=== PATIENT | male | born 1950 | race Caucasian/White ===

== ENCOUNTER 2017-08-02 10:54 | Day surgery (SDC) | payer MEDICARE ==
[2017-08-02] MEDS ORDERED: LACTATED RINGERS 1,000 ML IV ONE ×2 (11:16→11:21)
[2017-08-02] MEDS ORDERED: fentaNYL 100 MCG/2 ML VIAL IVP ONE (11:18)
[2017-08-02] MEDS ORDERED: MIDAZOLAM 2 MG/2 ML VIAL IVP ONE (11:18)
[2017-08-02 12:52] VITALS: BP 135/86
== END 2017-08-02 10:55 | disposition home or self-care (01) ==
LOC: SDS 10:54
PROVIDERS: ATTEND Surgery
PROC: 0DJD8ZZ Inspection of Lower Intestinal Tract, Via Natural or Artificial Opening Endoscopic (ICD-10-PCS; principal; 2017-08-02 12:00)
DX: Z12.11 Encounter for screening for malignant neoplasm of colon (principal); K64.8 Other hemorrhoids; Z80.0 Family history of malignant neoplasm of digestive organs; Z85.46 Personal history of malignant neoplasm of prostate
CPT/HCPCS: G0105; J7120

== ENCOUNTER 2018-07-21 09:19 | Outpatient (CLI) | payer MEDICARE ==
--- NOTE | 2018-07-22 09:21 | DEXA Report ---
Reason: OSTEOPOROSIS Procedure Date: 07/21/2018 Accession Number: [id number] / [id number] Procedure: DEX - Dexa Spine and/or Hip CPT Code: FULL RESULT: EXAM: Dexa Spine and/or Hip, Dexa Forearm DATE: 07/21/2018 10:07 AM CLINICAL HISTORY: OSTEOPOROSIS TECHNIQUE: Dual energy x-ray absorptiometry (DXA) was performed on a [employer] System. Regions measured are the AP Spine, femoral neck, and if needed forearm. COMPARISON: None. In accordance with the International Society for Clinical Densitometry (ISCD) guidelines, data from previous exams may be reanalyzed using current recommendations and techniques. This is done to allow a more accurate basis for comparison with the current study. FINDINGS: The data for the lumbar spine is as follows: BMD (g/cm/cm) T-SCORE Z-SCORE REGION L1 0.741 -3.5 -2.7 L2 1.034 -1.7 -0.9 L3 1.133 -0.9 -0.1 L4 1.051 -1.6 -0.8 TOTAL 0.992 -1.9 -1.1 NOTE: All evaluable vertebrae are used for classification The data for the hip is as follows: BMD (g/cm/cm) T-SCORE Z-SCORE REGION Neck 0.706 -2.8 -1.4 TOTAL 0.785 -2.2 -1.4 NOTE: The femoral neck or total proximal femur, whichever is lowest, is used for classification. The data for the right forearm is as follows: BMD (g/cm/cm) T-SCORE Z-SCORE REGION 1/3 0.701 -2.9 -2.2 NOTE: The 33% radius of the nondominant forearm is used for classification. IMPRESSION: THE WHO CLASSIFICATION BASED ON THE INTERNATIONAL REFERENCE STANDARD IS OSTEOPOROSIS. THE FRACTURE RISK IS HIGH. RECOMMENDATION: Patients with diagnosis of osteoporosis or osteopenia should have regular bone mineral density assessment. For those eligible for Medicare, routine testing is allowed once every 2 years. Testing frequency can be increased for patients who have rapidly progressing disease or for those who are receiving medical therapy to restore bone mass. COMMENT: World Health Organization (WHO) definitions for osteoporosis and osteopenia: NORMAL BMD: T-score at -1.0 or higher, fracture risk is low OSTEOPENIA BMD: T-score between -1.0 and -2.5, fracture risk is increased. OSTEOPOROSIS BMD: T-score at -2.5 or lower, fracture risk is high. National Osteoporosis Foundation recommends: 1. Obtain adequate dietary calcium (at least 1200 mg per day) and vitamin D (400-800 international units per day). 2. Participate, as appropriate, in regular weightbearing and muscle-strengthening exercise. 3. Avoid tobacco use and reduce alcohol and caffeine intake. 4. For more detailed information see the website at www.NOF.org.
--- NOTE | 2018-07-22 09:21 | DEXA Report ---
Reason: OSTEOPOROSIS Procedure Date: 07/21/2018 Accession Number: [id number] / [id number] Procedure: DEX - Dexa Forearm CPT Code: FULL RESULT: EXAM: Dexa Spine and/or Hip, Dexa Forearm DATE: 07/21/2018 10:07 AM CLINICAL HISTORY: OSTEOPOROSIS TECHNIQUE: Dual energy x-ray absorptiometry (DXA) was performed on a [employer] System. Regions measured are the AP Spine, femoral neck, and if needed forearm. COMPARISON: None. In accordance with the International Society for Clinical Densitometry (ISCD) guidelines, data from previous exams may be reanalyzed using current recommendations and techniques. This is done to allow a more accurate basis for comparison with the current study. FINDINGS: The data for the lumbar spine is as follows: BMD (g/cm/cm) T-SCORE Z-SCORE REGION L1 0.741 -3.5 -2.7 L2 1.034 -1.7 -0.9 L3 1.133 -0.9 -0.1 L4 1.051 -1.6 -0.8 TOTAL 0.992 -1.9 -1.1 NOTE: All evaluable vertebrae are used for classification The data for the hip is as follows: BMD (g/cm/cm) T-SCORE Z-SCORE REGION Neck 0.706 -2.8 -1.4 TOTAL 0.785 -2.2 -1.4 NOTE: The femoral neck or total proximal femur, whichever is lowest, is used for classification. The data for the right forearm is as follows: BMD (g/cm/cm) T-SCORE Z-SCORE REGION 1/3 0.701 -2.9 -2.2 NOTE: The 33% radius of the nondominant forearm is used for classification. IMPRESSION: THE WHO CLASSIFICATION BASED ON THE INTERNATIONAL REFERENCE STANDARD IS OSTEOPOROSIS. THE FRACTURE RISK IS HIGH. RECOMMENDATION: Patients with diagnosis of osteoporosis or osteopenia should have regular bone mineral density assessment. For those eligible for Medicare, routine testing is allowed once every 2 years. Testing frequency can be increased for patients who have rapidly progressing disease or for those who are receiving medical therapy to restore bone mass. COMMENT: World Health Organization (WHO) definitions for osteoporosis and osteopenia: NORMAL BMD: T-score at -1.0 or higher, fracture risk is low OSTEOPENIA BMD: T-score between -1.0 and -2.5, fracture risk is increased. OSTEOPOROSIS BMD: T-score at -2.5 or lower, fracture risk is high. National Osteoporosis Foundation recommends: 1. Obtain adequate dietary calcium (at least 1200 mg per day) and vitamin D (400-800 international units per day). 2. Participate, as appropriate, in regular weightbearing and muscle-strengthening exercise. 3. Avoid tobacco use and reduce alcohol and caffeine intake. 4. For more detailed information see the website at www.NOF.org.
== END 2018-07-21 09:20 | disposition home or self-care (01) ==
LOC: DI 09:19
PROVIDERS: ATTEND Internal Medicine
DX: M81.0 Age-related osteoporosis without current pathological fracture (principal)
CPT/HCPCS: 77080; 77081

== ENCOUNTER 2018-08-08 09:59 | Outpatient (CLI) | payer MEDICARE | END 2018-08-08 23:59 | disposition home or self-care (01) | LOC: LAB.R 09:59 | PROVIDERS: ATTEND Internal Medicine | DX: M81.0 Age-related osteoporosis without current pathological fracture (principal) | CPT/HCPCS: 82306 ==

== ENCOUNTER 2019-09-07 08:12 | Outpatient (CLI) | payer MEDICARE ==
--- NOTE | 2019-09-12 10:18 | DEXA Report ---
Reason: OSTEOPOROSIS Procedure Date: 09/07/2019 Accession Number: [id number] / [id number] Procedure: DEX - Dexa Spine and/or Hip CPT Code: Final Report FULL RESULT: EXAM: Dexa Spine and/or Hip DATE: 09/07/2019 8:45 AM CLINICAL HISTORY: OSTEOPOROSIS follow-up TECHNIQUE: 07/21/2018 COMPARISON: None. In accordance with the International Society for Clinical Densitometry (ISCD) guidelines, data from previous exams may be reanalyzed using current recommendations and techniques. This is done to allow a more accurate basis for comparison with the current study. FINDINGS: The data for the lumbar spine is as follows: BMD (g/cm/cm) T-SCORE Z-SCORE REGION L1 0.774 -3.2 -2.5 L2 1.149 -0.8 0.0 L3 1.112 -1.1 -0.3 L4 1.127 -0.9 -0.2 TOTAL 1.046 -1.4 -0.7 NOTE: All evaluable vertebrae are used for classification The data for the hip is as follows: BMD (g/cm/cm) T-SCORE Z-SCORE REGION Neck 0.672 -3.1 -1.7 TOTAL 0.772 -2.3 -1.5 NOTE: The femoral neck or total proximal femur, whichever is lowest, is used for classification. DXA RESULTS SUMMARY: Spine SCAN DATE AGE BMD CHANGE VS CHANGE VS PREVIOUS PREVIOUS % 09[birth year]07/2019 69.5 1.47 0.054* 5.4* 07/21/2018 68.4 0[age]992 * Denotes significant change at the 95% confidence level. Denotes dissimilar scan types or analysis methods. DXA RESULTS SUMMARY: Hip SCAN DATE AGE BMD CHANGE VS CHANGE VS PREVIOUS PREVIOUS % [birth year]/2019 68.5 0.772 -0.013 -1.7 07[birth year]21/2018 68.4 0.785 * Denotes significant change at the 95% confidence level. Denotes dissimilar scan types or analysis methods. IMPRESSION: THE WHO CLASSIFICATION BASED ON THE INTERNATIONAL REFERENCE STANDARD IS OSTEOPOROSIS, REFERENCE LEFT FEMORAL NECK. THE FRACTURE RISK IS HIGH. RECOMMENDATION: Patients with diagnosis of osteoporosis or osteopenia should have regular bone mineral density assessment. For those eligible for Medicare, routine testing is allowed once every 2 years. Testing frequency can be increased for patients who have rapidly progressing disease or for those who are receiving medical therapy to restore bone mass. COMMENT: World Health Organization (WHO) definitions for osteoporosis and osteopenia: NORMAL BMD: T-score at -1.0 or higher, fracture risk is low OSTEOPENIA BMD: T-score between -1.0 and -2.5, fracture risk is increased. OSTEOPOROSIS BMD: T-score at -2.5 or lower, fracture risk is high. National Osteoporosis Foundation recommends: 1. Obtain adequate dietary calcium (at least 1200 mg per day) and vitamin D (400-800 international units per day). 2. Participate, as appropriate, in regular weightbearing and muscle-strengthening exercise. 3. Avoid tobacco use and reduce alcohol and caffeine intake. 4. For more detailed information see the website at www.NOF.org.
== END 2019-09-07 08:13 | disposition home or self-care (01) ==
LOC: DI 08:12
PROVIDERS: ATTEND Family Medicine
DX: M81.0 Age-related osteoporosis without current pathological fracture (principal)
CPT/HCPCS: 77080

== ENCOUNTER 2020-02-17 10:21 | Outpatient (CLI) | payer MEDICARE ==
[2020-02-17] MEDS ORDERED: GADOBUTROL 7.5 MMOL/7.5 ML VIAL ONE (10:37)
[2020-02-17] MEDS ORDERED: GADOBUTROL 7.5 MMOL/7.5 ML VIAL IVP ONE (12:09)
--- NOTE | 2020-02-19 14:13 | MRI Report ---
PROCEDURE: Lumbar Spine W/WO INDICATIONS: LOW BACK PAIN CONTRAST: IV CONTRAST: Gadavist ml: 7 TECHNIQUE: Noncontrast sagittal T1 spin echo and T2 fast spin echo, sagittal STIR, axial T1 and T2 fast spin ech o through the lumbar spine. In cases with scoliosis, additional coronal T2 fast spin echo may be per formed. After the administration of contrast, sagittal and axial T1 spin echo with fat saturation th rough the lumbar spine. COMPARISON: Lumbar spine 04/25/2015, MRI lumbar spine 04/03/2015 FINDINGS: Image quality: Excellent. Alignment and curvature: There is trace retrolisthesis of L2 on L3, L3 on L4. Marrow: Marrow is of normal overall signal. Moderate reactive endplate changes are present at L2-3, L3-4, minimal throughout the remainder of the lumbar spine. No acute vertebral body compression fract ures. Old endplate compression deformity with Schmorl's node is noted at L2 and L3. No suspicious mar row enhancement. Spinal cord: Conus medullaris terminates at the L1 level. Visualized spinal cord demonstrates rossy l signal, without suspicious enhancement. Paraspinous soft tissues: No paravertebral masses or abnormal enhancement. Discs: Moderate to severe desiccation is present throughout the lumbar spine. L1-L2: Mild disc bulge with mild spinal stenosis. Moderate left foraminal narrowing with facet and ligamentum flavum hypertrophy. L2-L3: Mild disc bulge with moderate spinal stenosis. Mild to moderate foraminal narrowing, slight ly progressive with facet and ligamentum flavum hypertrophy. L3-L4: Mild disc bulge with moderate spinal stenosis. Severe left and moderate to severe right fora ciro narrowing with nerve root flattening most prominent on the left. Foraminal narrowing is present . Facet and ligamentum flavum hypertrophy are present. L4-L5: Mild disc bulge with mild to moderate spinal stenosis. Moderate to severe right and moderate left foraminal narrowing with facet and ligamentum flavum hypertrophy. Appreciable interval change. L5-S1: Mild disc bulge with mild to moderate spinal stenosis. Severe bilateral foraminal narrowing with nerve root flattening most prominent on the right. Facet and ligamentum flavum hypertrophy are present. Appearance is slightly progressive compared to prior exam. IMPRESSION: 1. Multilevel degenerative changes with areas of interval progression as above. 2. Multilevel foraminal narrowing most severe at L3-4, L5-S1, secondary to facet/ligamentum flavum ar thropathy. Reviewed by: Natividad Haro MD on 02/19/2020 2:12 PM PDT Approved by: Natividad Haro MD on 02/19/2020 2:12 PM PDT Station ID: [id number]
== END 2020-02-17 10:22 | disposition home or self-care (01) ==
LOC: DI 10:21
PROVIDERS: ATTEND Family Medicine
DX: M51.36 Other intervertebral disc degeneration, lumbar region (principal); M48.061 Spinal stenosis, lumbar region without neurogenic claudication; M81.0 Age-related osteoporosis without current pathological fracture
CPT/HCPCS: 72158; A9585